=== PATIENT | male | born 2000 | race Caucasian/White ===

== ENCOUNTER 2022-07-12 17:05 | Emergency (ER) | payer OTHER ==
[2022-07-12 17:55] VITALS: BP 126/69; PULSE 88; RESP 16; TEMP 98.3; BMI 24.3
== END 2022-07-12 18:39 | disposition home or self-care (01) ==
LOC: FER 17:05
DX: I86.1 Scrotal varices (principal); N50.82 Scrotal pain
CPT/HCPCS: 36415; 76870-TC; 81003; 81015; 87086; 87491; 87591; 99284-25